=== PATIENT | male | born 1980 | race Caucasian/White ===

== ENCOUNTER 2021-02-21 15:25 | Inpatient (IN) | payer OTHER, MEDICAID ==
[~2021-02-21] VITALS: Ht 167.6 cm; Wt 83.8 kg
--- NOTE | ~2021-02-21 | OP ---
[address] [address] OPERATIVE REPORT Name: NAVARRO JOSUE Room: [address] IN .R.#: [id number] Admission: 02/21/21 Attend Phys: Delores Talavera MD Discharge: Date of : 78 Report #: [id number] THIS REPORT FOR: cc: Zoey Mckeon Linda J. DO Justice, Michael J. DO ~ DATE OF SURGERY: 02/26/2021 PREOPERATIVE DIAGNOSIS: Right septic olecranon bursitis. POSTOPERATIVE DIAGNOSIS: Right septic olecranon bursitis. PROCEDURE: Right elbow irrigation and debridement with olecranon bursectomy. SURGEON: Brian Cabrera DO ANESTHESIA: General. FLUIDS: Crystalloid. ESTIMATED BLOOD LOSS: 50 mL. DRAINS: One [place] drain. SPECIMENS: 1. Olecranon bursa. 2. Culture swab x 2. COMPLICATIONS: None. CONDITION: Stable. DISPOSITION: PACU to med/surg floor. INDICATIONS: The patient is a 40-year-old nonverbal autistic gentleman who is cared for very closely by his father. 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 He has had at least one of the bout of cellulitis that resolved with antibiotics. He had another episode of cellulitis that started last week and over the past few days, has coalesced into a septic olecranon bursitis. He has been on oral antibiotics as he pulls at his IV and takes it out. At this time, it has been recommended for I and D with olecranon bursectomy. His father was informed of the risks, benefits and alternatives of the procedure. He verbalized understanding and wished to proceed. FINDINGS: We evaluated the elbow intraoperatively. He is noted to have chronic diffuse and necrotic olecranon bursal tissue. This [place] [address] OPERATIVE REPORT Name: NAVARRO JOSUE Room: [address] IN [facility].#: [id number] Admission: 02/21/21 Attend Phys: Delores Talavera MD Discharge: Date of : 78 Report #: [id number] Otherwise, soft tissues look appropriate. There was very little pus encountered. It was, however, obviously infected. DESCRIPTION OF PROCEDURE: The patient was brought to the operative suite, placed in supine position on the OR table, given the benefit of a general anesthetic. His right upper extremity received a well-padded tourniquet, the arm was inflated at 250 mmHg for the majority of the procedure, which was approximately 30-45 minutes. We prepped and draped the limb in usual sterile fashion with Betadine. A timeout was performed to ensure proper operative patient, procedure, and extremity. Once a timeout was performed, we began by making a longitudinal incision over the olecranon and ellipsing out a draining sinus. We then excised much of the necrotic olecranon bursal tissue as we felt we could safely and irrigated 3000 mL of sterile saline through the wound. Overall, it is much auto cleaner in better condition at this point. There is a fair amount of space in this thickened chronic bursitis area. We removed a little bit of skin from each wound edge to help close down the space. We placed a Edgar drain and closed the wound with multiple vertical mattress sutures using 3-0 nylon suture. We injected 20 mL of local anesthetic in the kiel-incisional area and applied a sterile dressing. The patient was transferred to PACU in stable condition. He tolerated the procedure well. By: [id number] Cabrera DO /eren
[~2021-02-21 15:25] MED LIST: ADASUVE10 MG IH; ATIVAN1 MG PO; BENADRYL25 MG PO; BENZTROPINE MES1 MG PO; DESMOPRESSIN A0.2 M2 PO; KEPPRA 500 MG500 M1 PO; LAMICTAL100 MG PO; MELATONIN3 MG PO; NEURONTIN 400M400 M2 PO; PROPRANOLOL 1010 MG PO; REMERON15 MG PO; RISPERDAL 1 MG T1 MG PO; RISPERDAL 3 MG T3 M1 PO; SEROQUEL 50 MG50 MG PO; TRILEPTAL300 MG PO
[2021-02-21 15:35] VITALS: BP 127/70
[2021-02-21 16:22] LABS: HEMOGLOBIN 13.7 gm/dL (14.0-18.0); MCH 32.4 pg (26.0-34.0); MCHC 34.2 g/dL (28.0-37.0); MCV 94.8 fL (80.0-100.0); MPV 8.1 fl. (7.2-11.1); NUCLEATED RBCS 0 /100WBC; PLATELET COUNT* 178 thou/uL (150-400); RBC 4.21 mil/uL (4.50-6.00); RDW-CV 13.8 % (10.5-14.5); WBC 17.3 thou/uL (4.0-11.0)
[2021-02-21 16:30] LABS: CALCIUM 8.8 mg/dL (8.5-10.1); CREATININE 1.4 mg/dL (0.6-1.3); POTASSIUM 3.6 mmol/L (3.5-5.1)
[2021-02-21 16:35] LABS: ALBUMIN 3.8 g/dL (3.4-5.0); TOTAL BILIRUBIN 0.9 mg/dL (<0.1-1.0); TOTAL PROTEIN 7.7 g/dL (6.4-8.2)
[2021-02-21 16:47] LABS: ABSOLUTE NEUTROPHILS 15.2 thou/uL (1.6-8.1); PLATELET ESTIMATE ADEQUATE
[2021-02-21 20:00] VITALS: BP 126/80
[2021-02-21 22:41] VITALS: BP 128/68
[2021-02-22 05:19] LABS: HEMOGLOBIN 12.1 gm/dL (14.0-18.0); MCH 32.1 pg (26.0-34.0); MCHC 33.6 g/dL (28.0-37.0); MCV 95.4 fL (80.0-100.0); MPV 8.6 fl. (7.2-11.1); RBC 3.77 mil/uL (4.50-6.00); RDW-CV 13.4 % (10.5-14.5); WBC 13.5 thou/uL (4.0-11.0)
[2021-02-22 05:43] LABS: CALCIUM 7.9 mg/dL (8.5-10.1); CREATININE 0.9 mg/dL (0.6-1.3); POTASSIUM 3.5 mmol/L (3.5-5.1)
--- NOTE | 2021-02-22 09:18 | NUR ---
UNABLE TO COMPLETE FULL ASSESSMENT AND VITAL SIGNS ON PATIENT DUE TO COMBATIVE AND HISTORY. PATIENT WITH NO DISTRESS. WILL CONTINUE TO MONITOR.
[2021-02-22 16:00] VITALS: BP 138/100
--- NOTE | 2021-02-22 18:12 | NUR ---
PATIENT RESTING IN BED. FATHER AT BEDSIDE INVOLVED WITH CARES. PATIENT DC'D TWO IV'S, COTTON AND TAPE PLACED TO SITES. WAITNG FOR IV TO BE PLACED FOR ANTIBIOTICS. HISTORY OF AUTISM AND EPILEPSY. RIGHT ARM WITH CELLULITIS, RED AND WARM TO THE TOUCH. BURSITIS TO BOTH ELBOWS AND BOTH ANKLES. RIGTH KNEE WITH 1+ EDMA, NO REDNESS NOTED. TOLERATING REGULAR DIET. HYDROCODONE X1 GIVEN FOR PAIN. ATIVAN IV GIVEN X1, ATIVAN PO GIVEN X1 FOR RESTLESSNESS/ANXIETY. BED IN LOW/LOCKED POSITION. SIDE RAILS UP X4. SEIZURE PADS IN PLACE. ALL QUESTIONS AND CONCERNS ADDRESSED.
[2021-02-22 20:00] VITALS: BP 124/82
[2021-02-23 00:36] VITALS: BP 126/86
[2021-02-23 05:28] LABS: HEMATOCRIT 34.9 % (42.0-52.0); HEMOGLOBIN 12.1 gm/dL (14.0-18.0); MCH 33.5 pg (26.0-34.0); MCHC 34.6 g/dL (28.0-37.0); MCV 96.6 fL (80.0-100.0); MPV 8.7 fl. (7.2-11.1); RBC 3.62 mil/uL (4.50-6.00); RDW-CV 13.5 % (10.5-14.5); WBC 13.5 thou/uL (4.0-11.0)
[2021-02-23 05:46] LABS: CALCIUM 8.3 mg/dL (8.5-10.1); CREATININE 0.7 mg/dL (0.6-1.3); POTASSIUM 3.6 mmol/L (3.5-5.1)
[2021-02-23 12:00] VITALS: BP 127/98
[2021-02-23 16:00] VITALS: BP 143/91
[2021-02-23 20:00] VITALS: BP 90/49
--- NOTE | 2021-02-23 20:00 | NUR ---
RECEIVED REPORT AND ASSUMED CARE OF PT, ASSESSMENT COMPLETED. DAD STAYING AT BEDSIDE, DOING TOTAL CARE. PT SLEEPING ALL WRAPPED UP IN SHEETS. NOT COOPERATIVE. NO IV ACCESS. WILL CONT TO MONITOR AND ASSIST NEEDED.
[2021-02-23 22:15] VITALS: BP 137/97
--- NOTE | 2021-02-23 22:15 | NUR ---
DAD WENT TO BR AND PT ROLL OUT OF BED OVER PADDED SIDE RAILS. PT WAS CURLED UP ON FLOOR CONT SLEEPING. TOTAL LIFT INTO BED. NO INJURY NOTED. DAD CONT TO BE AT BEDSIDE. PT TOOK HS MEDS EARLIER IN APPLESAUCE WITHOUT DIFFICULTY.
[2021-02-23 23:45] VITALS: BP 128/87; BP 137/97
[2021-02-24 04:33] LABS: CALCIUM 8.9 mg/dL (8.5-10.1); CREATININE 0.9 mg/dL (0.6-1.3); POTASSIUM 3.5 mmol/L (3.5-5.1)
[2021-02-24 04:41] LABS: HEMATOCRIT 34.7 % (42.0-52.0); MCHC 34.7 g/dL (28.0-37.0); MCV 95.2 fL (80.0-100.0); MPV 7.7 fl. (7.2-11.1); RBC 3.64 mil/uL (4.50-6.00); RDW-CV 13.5 % (10.5-14.5); WBC 11.3 thou/uL (4.0-11.0)
--- NOTE | 2021-02-24 06:51 | NUR ---
DAD REMAINED AT BEDSIDE. PT INCONT OF URINE, BRIEFS AND BED CHANGED. PT DOES NOT ASSIST WITH MOVING IN BED FOR THIS BUT RESTLESS AND MOVING TO BOTTOM OF BED. TOOK PO MEDS FOR DAD IN APPLESAUCE WITHOUT DIFFICULTY. HS GOAL OF REST ACHIEVED. HOURLY ROUNDING OBSERVED.
[2021-02-24 08:04] VITALS: BP 121/88
--- NOTE | 2021-02-24 15:04 | NUR ---
CM spoke with Pt's dad via phone. Pt's parents are his legal guardians, Pt resides at home with his parents. Pt is independent, parents assist as needed. No DME. Pt goes to a day program at [facility] in [place], [place], on -F from 830-4. No hx of HH or SNF. Goal is home at dc on oral abx. Anticipate dc in a few days.
[2021-02-24 16:00] VITALS: BP 119/68
--- NOTE | 2021-02-24 17:33 | NUR ---
PT ALERT TO SELF. DROWSY DURING SHIFT DUE TO ATIVAN. FATHER AT BEDSIDE AT ALL TIMES. TAKES PILLS WHOLE WITH APPLESAUCE. VITALS STABLE. NO IV. SIDE RAILS PADDED. HAS NOT GOT UP DURING SHIFT. EATING WELL. FALL PRECAUTIONS IN PLACE. WILL CONTINUE TO MONITOR.
[2021-02-24 20:00] VITALS: BP 132/102
--- NOTE | 2021-02-24 20:00 | NUR ---
RECEIVED REPORT AND ASSUMED CARE OF PT, ASSESSMENT COMPLETED. LAYING IN BED WITH COVERS OVER HIS HEAD, DOES NOT WANT TO BE UNCOVERED FOR ASSESSMENT. DAD STAYING AT BEDSIDE GIVING TOTAL CARE FOR PT. PT MOVING SELF IN BED, RESTLESS. BRIEFS ON, REFUSING GOWN. WILL CONT TO MONITOR AND ASSIST NEEDED.
[2021-02-24 23:52] VITALS: BP 135/67
[2021-02-25 04:07] VITALS: BP 123/87
[2021-02-25 04:39] LABS: HEMATOCRIT 35.7 % (42.0-52.0); HEMOGLOBIN 12.3 gm/dL (14.0-18.0); MCH 32.8 pg (26.0-34.0); MCHC 34.3 g/dL (28.0-37.0); MCV 95.5 fL (80.0-100.0); MPV 7.6 fl. (7.2-11.1); RBC 3.73 mil/uL (4.50-6.00); RDW-CV 13.4 % (10.5-14.5); WBC 13.6 thou/uL (4.0-11.0)
[2021-02-25 04:45] LABS: CALCIUM 9.2 mg/dL (8.5-10.1); CREATININE 0.8 mg/dL (0.6-1.3); POTASSIUM 3.9 mmol/L (3.5-5.1)
--- NOTE | 2021-02-25 06:48 | NUR ---
PT HAVING FREQ DIARRHEA DURING NIGHT. DAD ASSISTING WITH CARE. DR DIEZ NOTIFIED AND ORDERS RECEIVED FOR IMODIUM, GIVEN X2. RESTLESS IN BED, ATIVAN GIVEN. TAKING PO MEDS WELL IN APPLESAUCE. HS GOALS OF REST AND SAFETY ACHIEVED. DAD STAYING AT BEDSIDE.
[2021-02-25 07:20] VITALS: BP 144/92
--- NOTE | 2021-02-25 12:59 | NUR ---
Pt pulled picc line, Pt has autism/MR, dad afraid that Pt will continue to pull any lines placed. Plan oral meds. Ortho plan intervention either today or tomorrow. ID following cultures. Anticipate dc in a few days.
--- NOTE | 2021-02-25 15:42 | NUR ---
PT REMAINED ALERT. FATHER AT BEDSIDE MAJORITY OF DAY. I&D TOMORROW, DELYAED TODAY DUE TO POWER OUTAGE. FALL RISK PRECAUTIONS IN PLACE. SEIZURE PRECAUTIONS IN PLACE. HOURLY ROUNDING COMPLETED. CALL LIGHT WITHIN REACH.
[2021-02-25 16:00] VITALS: BP 160/91
[2021-02-25 20:00] VITALS: BP 134/96
[2021-02-26 01:55] VITALS: BP 134/96
[2021-02-26 05:50] VITALS: BP 126/77
[2021-02-26 06:00] VITALS: BP 134/96
--- NOTE | 2021-02-26 06:29 | NUR ---
PT SLEPT FAIRLY WELL OVERNIGHT,AWAKENS WITH CARES AND RESISTS. R ELBOW DRSG PLACED AFTER LEAKING OF MODERATE AMOUNT SEROSANGUANEOUS FLUID. PT INCONTINENT OVERNIGHT WEARING BRIEF, PANDA CARE GIVEN. PT NPO SINCE MIDNIGHT FOR I&D TODAY. [facility] STAFF CAME TO TRANSPORT PT AT 0600. NO IV ACCESS, DAD STATES PT WILL "PULL IT RIGHT OUT" UNLESS YOU DO IT IMMEDIATELY BEFORE MEDS NEED TO BE GIVEN. HYDROCODONE AND LORZEPAM GIVEN PRN, PT ABLE TO SLEEP FAIRLY WELL WITH DAD AT BEDSIDE. TAKES HS MEDS WITH APPLESAUCE. MORNING BETA [place] GIVEN WITH SMALL SIP OF WATER.
[2021-02-26 07:25] LABS: HEMATOCRIT 39.6 % (42.0-52.0); HEMOGLOBIN 13.1 gm/dL (14.0-18.0); MCH 31.8 pg (26.0-34.0); MCV 96.4 fL (80.0-100.0); MPV 6.6 fl. (7.2-11.1); RBC 4.11 mil/uL (4.50-6.00); RDW-CV 13.4 % (10.5-14.5); WBC 11.1 thou/uL (4.0-11.0)
[2021-02-26 07:33] LABS: CALCIUM 9.1 mg/dL (8.5-10.1); POTASSIUM 4.2 mmol/L (3.5-5.1)
--- NOTE | 2021-02-26 12:35 | NUR ---
Pt having I&D today. Continue abx. Anticipate dc in a few days.
[2021-02-26 16:00] VITALS: BP 131/74
--- NOTE | 2021-02-26 16:04 | NUR ---
PT REMAINED ALERT. FATHER AT BEDSIDE. I&D COMPLETED TODAY. FALL RISK PRECAUTIONS IN PLACE. SEIZURE PRECAUTIONS IN PLACE. HOURLY ROUNDING COMPLETED. CALL LIGHT WITHIN REACH.
[2021-02-26 21:00] VITALS: BP 144/78
[2021-02-27] VITALS: BP 109/65
[2021-02-27 04:24] LABS: HEMATOCRIT 32.1 % (42.0-52.0); MCH 31.8 pg (26.0-34.0); MCHC 32.7 g/dL (28.0-37.0); MCV 97.2 fL (80.0-100.0); MPV 6.9 fl. (7.2-11.1); RBC 3.31 mil/uL (4.50-6.00); RDW-CV 13.3 % (10.5-14.5); WBC 11.2 thou/uL (4.0-11.0)
[2021-02-27 04:37] LABS: CALCIUM 8.7 mg/dL (8.5-10.1); CREATININE 0.9 mg/dL (0.6-1.3); POTASSIUM 4.2 mmol/L (3.5-5.1)
[2021-02-27 04:50] LABS: HEMOGLOBIN 10.5 gm/dL (14.0-18.0)
--- NOTE | 2021-02-27 06:40 | NUR ---
Patient is non-verbal and has autism. His dad is at the bedside and does his care. Dad does his care, patient does not interact with others. He is incontinent and wears pull ups. Vitals were stable.
[2021-02-27 09:56] VITALS: BP 107/60
[2021-02-27 11:00] VITALS: BP 126/85
--- NOTE | 2021-02-27 12:13 | NUR ---
Anticipate dc in a few days. Continue abx. Pt had a fall today, no injury
--- NOTE | 2021-02-27 12:30 | NUR ---
Nutrition: Pt admitted with septic elbow. Seen for DX. Nonverbal, autism, incontinent. Pt's father in room at tiem of visit. He stated pt is eating well. Regular diet. Wt: 180#. Albumin is 3.8. Father agreed to a protein supplement if needed, but pt's protein stores are WNL and he is eating well. No supplements to be ordered at this time. Pt appears at mild nutrition risk. No other nutrition interventions needed at this time.
[2021-02-27 16:00] VITALS: BP 108/74
[2021-02-27 20:25] VITALS: BP 135/92
--- NOTE | 2021-02-28 04:25 | NUR ---
PT NONVERBAL, VSS ON ROOM AIR, MED/SURG STATUS, SEIZURE PRECAUTIONS. PT'S FATHER AT BEDSIDE THROUGHOUT NIGHT. PRN PAIN AND ANXIOLYTIC GIVEN NEEDED AND ORDERED. NO IV ACCESS. WILL CONTINUE TO MONITOR.
[2021-02-28 05:05] VITALS: BP 129/81
[2021-02-28] MEDS ORDERED: CLEOCIN HCL150 MG PO (10:16)
--- NOTE | 2021-02-28 11:08 | PATH ---
[address] [address] PATHOLOGY RPT PROCEDURE Name: JORGE LÓPEZ Room: [address] IN .R.#: [id number] Admission: 02/21/21 Date of : 78 Discharge: Report #: [id number] Path Case #: [id number] [facility] Accession Number: [id number] . 01 Material submitted: . elbow - RIGHT ELBOW TISSUE. Modifiers: right . 01 Clinical history: . SEPTOC A;ECRPNON BURSITIS RIGHT SEPTIC OLECRANON BURSITIS . 02 Diagnosis: Right elbow tissue: - Benign fibrovascular connective tissue with necrosis, acute inflammation and fibrosis. . (ABRAHAM:mml; 02/27/2021) QL 02/27/2021 1318 Local . 02 Electronically signed: . Deny Hoffmann MD, Pathologist NPI- [id number] . 01 Gross description: . The specimen is received in formalin, labeled "Jorge López, right elbow tissue". Received are multiple segments of dusky pink-franklin tissue including possible skin, admixed with pink-franklin to necrotic-appearing fibromembranous tissue measuring 9.3 x 9.2 x 2.7 cm in aggregate dimensions. The specimen is submitted representatively in cassette A1, to include a section of possible skin. (CAA; 02/26/2021) QAC/QAC 02/27/2021 1316 Local . 02 Pathologist provided ICD-10: M70.21 . 02 CPT . 694676 Specimen Comment: A courtesy copy of this report has been sent to [phone], [phone] Specimen Comment: [id number], Specimen Comment: Report sent to , DR SELBY / DR DIEZ Specimen Comment: A duplicate report has been generated due to demographic updates. Performed at: [address] [facility] [address], [place], [place] [id number] MD Jose Hopkins MD Phone: [phone] [place] [address] PATHOLOGY RPT PROCEDURE Name: JORGE LÓPEZ Room: [address] IN M.R.#: [id number] Admission: 02/21/21 Date of : 78 Discharge: Report #: [id number] Path Case #: [id number] Performed at: [facility] [address] [place] [id number] MD Deny Hoffmann MD Phone: [phone]
== END 2021-02-28 14:15 | disposition home or self-care (01) | DRG 853 ==
LOC: M.ERS 15:25 → M.TBA-ER 16:56 → M.2W 16:56
PROVIDERS: Physician Assistant; ADMIT Family Medicine; ATTEND Family Medicine
PROC: 0MB30ZZ Excision of Right Elbow Bursa and Ligament, Open Approach (ICD-10-PCS; principal; 2021-02-26)
DX: A41.9 Sepsis, unspecified organism (principal); N17.0 Acute kidney failure with tubular necrosis; L03.113 Cellulitis of right upper limb; F84.0 Autistic disorder; E87.1 Hypo-osmolality and hyponatremia; G40.909 Epilepsy, unspecified, not intractable, without status epilepticus; F31.9 Bipolar disorder, unspecified; R65.20 Severe sepsis without septic shock; M70.22 Olecranon bursitis, left elbow; M70.21 Olecranon bursitis, right elbow; Z20.822 Contact with and (suspected) exposure to COVID-19; Z79.899 Other long term (current) drug therapy; Y93.89 Activity, other specified